=== PATIENT | male | born 1965 | race Caucasian/White ===

== ENCOUNTER 2024-06-03 22:33 | Inpatient (IN) | payer MEDICARE, MEDICAID ==
[~2024-06-03] VITALS: Ht 172.7 cm; Wt 54.9 kg
[2024-06-03 22:37] VITALS: O2SAT 98
[2024-06-03] MEDS: SODIUM CHLORIDE 0.9% 1,000 ML IV ONE (22:56)
[2024-06-03 23:08] LABS: HEMATOCRIT. 45.7 % (42.0-52.0); MEAN CORPUSCULAR HEMOGLOBIN 31.3 pg (28.0-32.0); MEAN CORPUSCULAR HGB CONC 35.1 g/dL (31.0-37.0); MEAN CORPUSCULAR VOLUME 89.1 fL (80.0-94.0); MEAN PLATELET VOLUME 8.1 fl (7.4-10.4); PLATELET 265 x1000/uL (130-400); RED BLOOD CELL COUNT 5.12 mill/uL (4.7-6.1); RED CELL DISTRIBUTION WIDTH 14.4 % (11.6-14.6); WHITE BLOOD COUNT 10.4 x1000/uL (4.5-11.0)
[2024-06-03 23:09] LABS: DIFFERENTIAL COMMENT 1
[2024-06-03 23:16] LABS: CARBON DIOXIDE 25 mEq/L (21-32); CHLORIDE 100 mEq/L (98-107); POTASSIUM 4.6 mEq/L (3.5-5.1); SODIUM 133 mEq/L (136-145)
[2024-06-03 23:17] LABS: CALCIUM 9.1 mg/dL (8.7-10.4)
[2024-06-03 23:18] LABS: INR 1.1; PROTHROMBIN TIME 12.3 sec (9.6-11.0)
[2024-06-03] MEDS: ACETAMINOPHEN 1000MG/100ML 100 ML IV ONE (23:19)
[2024-06-03 23:22] LABS: CREATININE 1.8 mg/dL (0.6-1.3); GLUCOSE 143 mg/dL (70-105); UREA NITROGEN BLOOD 22 mg/dL (9-23)
[2024-06-03 23:24] LABS: LACTIC ACID 2.2 mmol/L (0.4-2.0)
[2024-06-03 23:26] LABS: ETHANOL BLOOD < 10 mg/dL (<10)
[2024-06-03 23:31] LABS: PLATELET ESTIMATE NORMAL
[2024-06-03 23:37] LABS: CLARITY URINE TURBID (CLEAR); COLOR URINE DARK YELLOW (YELLOW); GLUCOSE URINE NEGATIVE (NEGATIVE); KETONES URINE TRACE (NEGATIVE); LEUKOCYTE ESTERASE URINE 3+ (NEGATIVE); NITRITE URINE POSITIVE (NEGATIVE); OCCULT BLOOD URINE 3+ (NEGATIVE); PH URINE 5.5 (4.5-8.0); PROTEIN URINE 3+ (NEGATIVE); SPECIFIC GRAVITY URINE 1.022 (1.005-1.030)
[2024-06-03] MEDS: PIPERACILLIN/TAZO 3.375G/50ML 50 ML IV ONE (23:45)
[2024-06-04 00:01] LABS: *AMPHETAMINES SCREEN URINE PRESUMPTIVE POSITIVE (NEGATIVE); *BARBITURATES SCREEN URINE NEGATIVE (NEGATIVE); *BENZODIAZEPINES SCREEN URINE NEGATIVE (NEGATIVE); *COCAINE SCREEN URINE NEGATIVE (NEGATIVE); METHADONE URINE SCREEN NEGATIVE (NEGATIVE); OPIATES URINE SCREEN NEGATIVE (NEGATIVE)
[2024-06-04 00:02] LABS: CANNABINOID URINE SCREEN NEGATIVE (NEGATIVE); ECSTASY MDMA SCREEN URINE NEGATIVE (NEGATIVE); PHENCYCLIDINE URINE SCREEN NEGATIVE (NEGATIVE)
[2024-06-04] MEDS: SODIUM CHLORIDE 0.9% 1,000 ML IV NR (00:22)
[2024-06-04] MEDS: VANCOMYCIN 1G PREMIX 200 ML IV ONE (00:25)
[2024-06-04 00:27] LABS: BACTERIA URINE 2+; FINE GRANULAR CASTS URINE 0-5 /lpf; RBC URINE 25-50 /hpf (0-2); SQUAMOUS EPITHELIAL CELL URINE 1+ /lpf (RARE/1+); WBC URINE TNTC /hpf (0-2)
[2024-06-04] MEDS: MORPHINE SULFATE 4 MG/ML INJ (FOR IV/IM USE) IV NR (00:51)
[2024-06-04] MEDS: NOREPINEPHRINE 8MG/250ML PMX 250 ML IV ONE (01:35)
[2024-06-04] MEDS ORDERED: ONDANSETRON HCL 4MG/2ML INJ IV PRN (07:15)
[2024-06-04] MEDS ORDERED: ACETAMINOPHEN 325MG TABLET PO PRN (07:15)
[2024-06-04] MEDS: MIDODRINE HCL 5MG TABLET PO SCH (07:15)
[2024-06-04] MEDS: PIPERACILLIN/TAZO 3.375G/50ML 50 ML IV SCH (09:00)
[2024-06-04 12:00] VITALS: BP_SYST 101; BP_SYST 104; BP_DIAS 50; BP_DIAS 68; PULSE 62; PULSE 93; RESP 18; TEMP 36.7; TEMP 36.8; O2SAT 98
[2024-06-04] MEDS ORDERED: NALOXONE HCL 0.4MG/ML VIAL IV PRN (13:00)
[2024-06-04] MEDS: SODIUM CHLORIDE 0.9% 1,000 ML IV SCH (14:40)
[2024-06-04] MEDS: TRAMADOL 50MG TABLET PO PRN (14:40)
[2024-06-04 16:00] VITALS: BP 102/74; PULSE 87; RESP 18; TEMP 36.5; O2SAT 98
[2024-06-04] MEDS ORDERED: BICT1TAB PO (17:41)
[2024-06-04] MEDS ORDERED: TAMS-11 PO (17:41)
[2024-06-05] VITALS: BP 129/70; PULSE 71; RESP 17; TEMP 37; O2SAT 100
[2024-06-05 04:00] VITALS: BP 97/72; PULSE 80; RESP 19; TEMP 36.3; O2SAT 99
[2024-06-05 06:27] LABS: BASOPHILS % 0.9 % (0.0-2.0); HEMATOCRIT. 39.4 % (42.0-52.0); HEMOGLOBIN. 13.5 g/dL (14.0-18.0); LYMPHOCYTES % 27.4 % (20.0-50.0); MEAN CORPUSCULAR HEMOGLOBIN 30.7 pg (28.0-32.0); MEAN CORPUSCULAR HGB CONC 34.3 g/dL (31.0-37.0); MEAN CORPUSCULAR VOLUME 89.7 fL (80.0-94.0); MEAN PLATELET VOLUME 7.9 fl (7.4-10.4); MONOCYTES % 11.5 % (2.0-8.0); NEUTROPHILS % 55.2 % (40.0-76.0); PLATELET 195 x1000/uL (130-400); RED BLOOD CELL COUNT 4.39 mill/uL (4.7-6.1); RED CELL DISTRIBUTION WIDTH 13.7 % (11.6-14.6); WHITE BLOOD COUNT 7.1 x1000/uL (4.5-11.0)
[2024-06-05 06:34] LABS: POTASSIUM 4.4 mEq/L (3.5-5.1)
[2024-06-05 06:35] LABS: CALCIUM 8.4 mg/dL (8.7-10.4)
[2024-06-05 06:40] LABS: CREATININE 1.3 mg/dL (0.6-1.3)
[2024-06-05 08:00] VITALS: BP 99/56; PULSE 86; RESP 18; TEMP 36.7; O2SAT 98
[2024-06-05] MEDS: BIKTARVY 50-200-25MG PO SCH (09:00)
[2024-06-05] MEDS ORDERED: TAMSULOSIN HCL 0.4MG SR CAPSULE PO SCH (09:00)
[2024-06-05 12:00] VITALS: PULSE 84; RESP 18; TEMP 36.7; O2SAT 99
[2024-06-05 16:00] VITALS: BP 104/59; PULSE 87; RESP 18; TEMP 36.8; O2SAT 99
[2024-06-05 20:00] VITALS: BP 101/66; PULSE 74; RESP 17; TEMP 36.4; O2SAT 98
[2024-06-05] MEDS: TAMSULOSIN HCL 0.4MG SR CAPSULE PO SCH (22:12)
[2024-06-06] VITALS: BP 106/65; PULSE 71; RESP 16; TEMP 36.1; O2SAT 100
[2024-06-06 04:00] VITALS: BP 93/61; PULSE 81; RESP 17; TEMP 37.1; O2SAT 99
[2024-06-06 08:00] VITALS: BP 105/66; PULSE 88; RESP 16; TEMP 36.4; O2SAT 100
[2024-06-06 12:00] VITALS: BP 105/66; PULSE 88; RESP 16; TEMP 36.4; O2SAT 100
[2024-06-06] MEDS ORDERED: CEFTRIAXONE 1GM/50ML 50 ML IV SCH (13:00)
[2024-06-06 16:00] VITALS: BP 100/58; PULSE 96; RESP 16; TEMP 36.4; O2SAT 98
== END 2024-06-07 08:15 | disposition left against medical advice (07) | DRG 689 ==
LOC: ER 22:33 → 6EST 06-04 01:24 → EDBEDREQSVC 06-04 08:10
PROVIDERS: ADMIT Internal Medicine; ATTEND Internal Medicine
DX: N39.0 Urinary tract infection, site not specified (principal); N17.0 Acute kidney failure with tubular necrosis; N40.0 Benign prostatic hyperplasia without lower urinary tract symptoms; Z53.29 Procedure and treatment not carried out because of patient's decision for other reasons; B96.20 Unspecified Escherichia coli [E. coli] as the cause of diseases classified elsewhere; F15.90 Other stimulant use, unspecified, uncomplicated; F17.210 Nicotine dependence, cigarettes, uncomplicated; Z87.442 Personal history of urinary calculi
CPT/HCPCS: 36415; 71045; 72100; 74176; 80048; 80305; 80320; 81003; 83605; 84145; 85025; 87077; 87186; 93005; 99291; J0696; J2543; J3370; J3490; J7030; G0480; J0131